=== PATIENT | male | born 1990 | race Caucasian/White ===

== ENCOUNTER 2022-08-02 04:03 | Emergency (ER) | payer SELFPAY ==
[2022-08-02 04:19] VITALS: BP 130/82; PULSE 101; RESP 16; TEMP 37.3; O2SAT 97
--- NOTE | 2022-08-02 04:30 | ED.GENADUL_ITS ---
Discharge Plan Disposition Patient Disposition: HOME Condition: Stable Discharge Details Clinical Impression: Depression, Alcohol intoxication [facility]: Kwadwo Connelly Home Meds and New Rx's Prescriptions: No Action No Known Home Meds Discharge Instructions Instructions: Depression (ED) Additional Instructions: follow up with your primary care provider and [facility] if you feel more ill or have worsening thoughts of self harm return to the emergency department Discharge Data Discharge Date/Time-TO BE ENTERED AT DEPARTURE: 08/02/22 10:20 Medical Decision Making <Dulce Amos DO - Last Filed: 08/03/22 04:48> 0430 -- 31-year-old male presents for mental health for medical clearance and evaluation once clinically sober due to making homicidal and suicidal statements yesterday. Vitals within normal limits. Patient appears clinically sober. He currently denies feeling homicidal and suicidal and states he does not have a plan and becomes tearful and states I have kids . Will obtain screening labs, urinalysis, COVID. 0545 -- Labs reviewed. Alcohol level 134. Alcohol level would be around 0 at 10:30 AM. 0800 -- Case endorsed to Dr. Connelly to follow-up with mental health after evaluat ion after 1030am. <Kwadwo Connelly MD - Last Filed: 08/02/22 10:06> 0430 -- 31-year-old male presents for mental health for medical clearance and evaluation once clinically sober due to making homicidal and suicidal statements yesterday. Vitals within normal limits. Patient appears clinically sober. He currently denies feeling homicidal and suicidal and states he does not have a plan and becomes tearful and states I have kids . Will obtain screening labs, urinalysis, COVID. 0545 -- Labs reviewed. Alcohol level 134. Alcohol level would be around 0 at 10:30 AM. 0800 -- Case endorsed to Dr. Connelly to follow-up with mental health after evaluation after 1030am. pt now ambulatory and caox4 with no slurred speech, is clinically sober and denies si/hi now. Evaluated by nk and cleared for d/c, he will f/u with pcp and [facility], return precautions given HPI <Dulce Amos DO - Last Filed: 08/03/22 04:48> General Mode of arrival: ambulatory . Date/Time Provider Initiated Documentation: 08/02/22 04:06 . Limitations to Documentation: no limitations . Information obtained by: patient . HPI Narrative: Patient is a 31-year-old male who presents for mental health for evaluation after making homicidal and suicidal statements. Mental health called to state that patient was intoxicated. Police but due to making homicidal and suicidal statements earlier today, he is being brought in for evaluation and medical clearance with plan for evaluation once clinically sober. Patient states he drank approximately 15 beers starting yesterday morning at 10 AM. He states he also had some liquor. He denies any drug use. Patient states he thinks he made suicidal and homicidal statements to his ex-girlfriend and her friend while he was intoxicated. He denies feeling homicidal at this time. He states he feels sad and depressed but currently not suicidal and does not have a plan as he st ates I have kids. He states he has never taken antidepressants. Related Data Home Medications Medication Instructions Recorded Confirmed Unknown [No Known Home Meds] 08/02/22 08/02/22 Allergies Allergy/AdvReac Type Severity Reaction Status Date / Time No Known Allergies Allergy Unverified 08/02/22 04:25 General Stated Complaint: PsychEval LLOYD: 2 Review of Systems <Dulce Amos DO - Last Filed: 08/03/22 04:48> All systems reviewed & are unremarkable except as noted in HPI and below Constitutional Constitutional: Reports as per HPI, Denies chills and Denies fever(s) Eyes Eyes: Denies blurry vision ENT Ears, Nose, Mouth, and Throat: Denies dizziness, Denies sore throat and Denies throat swelling Cardiovascular Cardiovascular: Denies chest pain and Denies dyspnea Respiratory Respiratory: Denies cough and Denies dyspnea Gastrointestinal Gastrointestinal: Denies abdominal pain, Denies diarrhea and Denies vomiting Genitourinary Genitourinary: Denies hematuria and Denies dysuria Musculoskeletal Musculoskeletal: Denies back pain and Denies numbness Integumentary/Breasts Skin/Breast: Denies lesions and Denies rash Neurologic Neurologic: Denies dizziness, Denies localized weakness and Denies numbness Psychiatric Psychiatric: Denies homicidal ideation and Reports suicidal ideation Allergic/Immunologic Allergic/Immunologic: Denies throat swelling PFS <Dulce Amos DO - Last Filed: 08/03/22 04:48> All Active Problems (Updated 08/02/22 @ 07:58 by Dulce Amos DO) Depression (Chronic) Alcohol intoxication (Acute) Medical History (Updated 08/02/22 @ 07:58 by Dulce Amos DO) No significant past medical history Surgical History (Updated 08/02/22 @ 04:42 by Dulce Amos DO) History of hernia repair History of knee surgery Social History Smoking/Tobacco Use Status: Current every day Tobacco Type: cigarettes Smoking risk assessment performed?: Yes Substance use type: does not use Do you feel safe at home: Yes Exam <Dulce Amos DO - Last Filed: 08/03/22 04:48> Const General: cooperative, no acute distress and other (clinically sober, answers questions appropriately) Orientation: alert, awake and oriented x3 HENMT Head: normal to inspection Mouth: oral mucosae normal Eyes General: appearance normal, both eyes and all related structures Neck Neck: normal visual inspection Resp Effort & Inspection: normal respiratory effort and able to speak in complete sentences Auscultation: clear to auscultation bilaterally Cardio Rate: regular rate Rhythm: regular rhythm GI Palpation: soft, not firm, no guarding, not rigid and nontender Auscultation: hypoactive bowel sounds Skin General skin exam: no rashes or lesions noted Neuro General: patient alert, patient awake and patient oriented x3 Motor: muscle tone normal throughout Extrem General: normal to inspection, full ROM and no edema Psych Appearance: grossly normal Speech and Movement: speech and movement normal Mood: dysthymic mood Affect: sad Attitude: cooperative Thought Process: normal Thought Content: normal Insight: insight good Judgment: judgment good Course <Dulce Amos DO - Last Filed: 08/03/22 04:48> Vital Signs Vital signs: Vital Signs Temperature 99.1 F 08/02/22 04:19 Pulse 101 H 08/02/22 04:19 Respiratory Rate 16 08/02/22 04:19 Blood Pressure 130/82 08/02/22 04:19 Pulse Oximetry 97 08/02/22 04:19 Temperature 99.1 F 08/02/22 04:19 Temperature Source Skin 08/02/22 04:19 Pulse 101 H 08/02/22 04:19 Respiratory Rate 16 08/02/22 04:19 Respiratory Effort 08/02/22 04:19 Blood Pressure 130/82 08/02/22 04:19 Blood Pressure Position Sitting 08/02/22 04:19 Pulse Oximetry 97 08/02/22 04:19 Oxygen Delivery Method Room Air 08/02/22 04:19 Oxygen Flow Rate 0 08/02/22 04:19 Pain Level 0 08/02/22 04:19 Sign Out <Dulce Amos DO - Last Filed: 08/03/22 04:48> Sign Out Data: Sign Out Comment: Intoxicated and suicidal. Plan for mental health evaluation once alcohol level near 0 which would be around 1030am. Last updated by Dulce Amos DO at 08/02/22 07:03 PAWSS <Dulce Amos DO - Last Filed: 08/03/22 04:48> Have you Been Recently Intoxicated or Drunk Within the Last 30 days?: Yes Have you Ever Experienced Previous Episodes of Alcohol Withdrawal?: Yes Have you ever Experienced Withdrawal Seizures?: No Have you ever Experienced Delirium Tremens(DT)s?: No Have you ever undergone Alcohol Rehabilitation Treatment (i.e, inpt ot outpatient treatment programs)?: No Have you ever Experienced Blackouts?: Yes Have you ever Combined Alcohol with other Downers within the last 90 days?: No Have you ever Combined Alcohol with any other Substance of Abuse during the last 90 days?: No Positive Blood Alcohol level on Presentation? [PCS.BAL]: Yes Evidence of Increased Autonomic Activity (i.e. HR>120, tremor, sweating, agitation, nausea)?: No Result: 4 <Kwadwo Connelly MD - Last Filed: 08/02/22 10:06> Result: 4
[2022-08-02 04:52] LABS: *AMPHETAMINES SCREEN URINE Negative (Negative); *BARBITURATES SCREEN URINE Negative (Negative); *BENZODIAZEPINES SCREEN URINE Negative (Negative); Cannabinoids THC Negative (Negative); Cocaine Screen,Urine Negative (Negative); METHADONE URINE SCREEN Negative (Negative); OPIATES URINE SCREEN Negative (Negative)
[2022-08-02 04:55] LABS: Tricyclic Antidepressants Negative (Negative)
[2022-08-02 04:58] LABS: Abs Immature Grans 0.04 10^3/uL (0.0-0.06); Absolute Basophil Count 0.04 10^3/uL (0.0-0.2); Absolute Eosinophil Count 0.05 10^3/uL (0.0-0.7); Absolute Lymphocyte Count 1.81 10^3/uL (1.2-3.4); Absolute Monocyte Count 0.63 10^3/uL (0.1-0.8); Absolute Neutrophil Count 6.54 10^3/uL (1.2-6.7); Basophils % 0.4; Eosinophils % 0.5; HCT 45.2 % (40.0-50.0); HGB 15.4 g/dL (13.5-17.5); Immature Grans % 0.4; Lymphocytes % 19.9; MCHC 34.1 % (32.0-36.0); MCV 91 fL (80-95); MPV 9.6 fL (8.0-11.0); Monocytes % 6.9; Neutrophils % 71.9; Platelet Count 283 10^3/uL (130-400); RBC 4.96 10^6/uL (4.36-5.78); RDW 12.6 % (11.8-14.1); RDW-SD 41.5 fL; WBC 9.11 10^3/uL (4.4-10.8)
[2022-08-02 05:15] LABS: ALT 50 U/L (16-63); AST 21 U/L (15-37); Albumin 4.4 g/dL (3.4-5.0); Alkaline Phosphatase 121 U/L (46-116); Anion Gap 11.4 mmol/L (3-11); BUN 13 mg/dL (7-18); Bilirubin, Total 0.3 mg/dL (0.2-1.0); CO2 25.6 mmol/L (21.0-32.0); Calcium 9.2 mg/dL (8.5-10.1); Chloride 104 mmol/L (98-107); ETHANOL BLOOD 134.9 mg/dL (<10); Estimated GFR 104.48 (mL/min/1.73m2); Glucose 86 mg/dL (74-106); Potassium 3.9 mmol/L (3.5-5.1); Sodium 141 mmol/L (136-145); Total Protein 8.4 g/dL (6.4-8.2)
[2022-08-02 06:17] LABS: Source Nasal/Nares
[2022-08-02 06:50] LABS: COVID-19 PCR Negative (Negative)
[2022-08-02 10:05] VITALS: BP 129/75; PULSE 98; RESP 12; TEMP 36.6; O2SAT 95
== END 2022-08-02 10:20 | disposition home or self-care (01) ==
PROVIDERS: Physician Assistant; Emergency Provider Emergency Medicine
DX: F32.A Depression, unspecified (principal); F10.129 Alcohol abuse with intoxication, unspecified; Y90.6 Blood alcohol level of 120-199 mg/100 ml; F17.210 Nicotine dependence, cigarettes, uncomplicated; Z20.822 Contact with and (suspected) exposure to COVID-19
CPT/HCPCS: 80053; 80307; 87635; 99285; 80320; 85025; 99284